=== PATIENT | female | born 1935 ===

== ENCOUNTER 2023-01-30 14:00 | Inpatient (IN) | payer OTHER ==
[2023-01-30 14:19] VITALS: BMI 28.3
[2023-01-30 15:26] LABS: BASO % 0.6 % (0-2.0); EOS % 4.4 % (0-4.5); HEMATOCRIT 22.7 % (32.4-45.2); HEMOGLOBIN 7.2 GM/dL (10.7-15.3); MCH 24.1 pg (25.7-33.7); MCHC 31.7 g/dl (32.0-36.0); MEAN CELL VOLUME 75.9 fl (80-96); MEAN PLT VOLUME 7.7 fl (7.5-11.1); MONO % 8.6 % (3.8-10.2); NEUT % 68.4 % (42.8-82.8); PLATELET COUNT 494 10^3/uL (134-434); RBC 2.99 M/mm3 (3.60-5.2); RDW 21.7 % (11.6-15.6); WHITE BLOOD COUNT 14.6 K/mm3 (4.0-10.0)
[2023-01-30 15:43] LABS: ANISOCYTOSIS 3+; MACROCYTOSIS 0
[2023-01-30 15:49] LABS: CALCIUM 8.6 mg/dL (8.5-10.1)
[2023-01-30 15:50] LABS: BLOOD UREA NITROGEN 26.7 mg/dL (7-18)
[2023-01-30 15:52] LABS: CREATININE 0.5 mg/dL (0.55-1.3)
[2023-01-30 15:54] LABS: BILIRUBIN,TOTAL 0.4 mg/dL (0.2-1); TOT PROT 6.9 g/dl (6.4-8.2)
[2023-01-30] MEDS ORDERED: PIPERACILLIN/TAZOB 4.5 GM 4.5 GM in DEXTROSE 5%-WATER 100 ML IVPB ONE (16:00)
[2023-01-30] MEDS ORDERED: VANCOMYCIN 1 GM in D5W (PRE-DOCKED) 1,000 MG/250 ML IVPB ONE (16:00)
[2023-01-30] MEDS ORDERED: VANCOMYCIN/WATER FOR INJ (PEG) 1,000 MG/200 ML BAG IVPB ONE (16:56)
[2023-01-30] MEDS ORDERED: PIPERACILLIN/TAZOB 3.375 GM 3.375 GM/50 ML BAG IVPB ONE (16:57)
[2023-01-30 17:13] LABS: URINE APPEARANCE CLEAR; URINE BILIRUBIN NEGATIVE (NEGATIVE); URINE COLOR YELLOW; URINE GLUCOSE (UA) NEGATIVE (NEGATIVE); URINE KETONE NEGATIVE (NEGATIVE); URINE LEUK ESTERASE NEGATIVE (NEGATIVE); URINE NITRITE NEGATIVE (NEGATIVE); URINE PROTEIN NEGATIVE (NEGATIVE); URINE UROBILINOGEN 0.2 mg/dL (0.2-1.0)
[2023-01-31 06:41] LABS: BASO % 0.7 % (0-2.0); EOS % 2.3 % (0-4.5); HEMATOCRIT 27.7 % (32.4-45.2); HEMOGLOBIN 9.2 GM/dL (10.7-15.3); MCHC 33.3 g/dl (32.0-36.0); MEAN CELL VOLUME 78.1 fl (80-96); MEAN PLT VOLUME 7.9 fl (7.5-11.1); MONO % 7.6 % (3.8-10.2); NEUT % 72.4 % (42.8-82.8); PLATELET COUNT 478 10^3/uL (134-434); RBC 3.54 M/mm3 (3.60-5.2); RDW 20.3 % (11.6-15.6); WHITE BLOOD COUNT 10.5 K/mm3 (4.0-10.0)
[2023-01-31 07:07] LABS: CALCIUM 8.6 mg/dL (8.5-10.1)
[2023-01-31 07:08] LABS: BLOOD UREA NITROGEN 17.7 mg/dL (7-18)
[2023-01-31 07:11] LABS: CREATININE 0.4 mg/dL (0.55-1.3)
[2023-01-31] MEDS ORDERED: INSULIN SLIDING SCALE (NOVOLOG) 1 VIAL SQ SCH (11:00)
[2023-01-31] MEDS: amLODIPine BESYLATE 2.5 MG TABLET (FP) GT SCH (11:36)
[2023-01-31] MEDS ORDERED: amLODIPine BESYLATE 2.5 MG TABLET (FP) ONE (11:42)
[2023-01-31] MEDS ORDERED: VANCOMYCIN/WATER FOR INJ (PEG) 1,000 MG/200 ML BAG IVPB ONE ×2 (12:46→13:35)
[2023-01-31] MEDS: PIPERACILLIN/TAZOB 3.375 GM 3.375 GM in DEXTROSE 5%-WATER - 50 ML IVPB SCH (13:35)
[2023-01-31] MEDS ORDERED: PIPERACILLIN/TAZOB 3.375 GM 3.375 GM/50 ML BAG IVPB ONE (13:36)
[2023-01-31] MEDS: INSULIN (LEVEMIR) 100 UNITS/ML UNITS SQ SCH (23:00)
[2023-02-01] MEDS ORDERED: PIPERACILLIN/TAZOB 3.375 GM 3.375 GM/50 ML BAG IVPB ONE ×2 (00:23→08:50)
[2023-02-01] MEDS: PIPERACILLIN/TAZOB 3.375 GM 3.375 GM in DEXTROSE 5%-WATER - 50 ML IVPB SCH ×4 (01:00→18:32)
[2023-02-01 06:53] LABS: BASO % 0.8 % (0-2.0); EOS % 2.1 % (0-4.5); HEMATOCRIT 25.9 % (32.4-45.2); HEMOGLOBIN 8.5 GM/dL (10.7-15.3); LYMPH % 14.7 % (8-40); MCH 25.5 pg (25.7-33.7); MCHC 32.7 g/dl (32.0-36.0); MONO % 9.8 % (3.8-10.2); NEUT % 72.6 % (42.8-82.8); PLATELET COUNT 476 10^3/uL (134-434); RBC 3.32 M/mm3 (3.60-5.2); RDW 20.5 % (11.6-15.6); WHITE BLOOD COUNT 12.8 K/mm3 (4.0-10.0)
[2023-02-01 07:19] LABS: BLOOD UREA NITROGEN 16.2 mg/dL (7-18); CALCIUM 8.6 mg/dL (8.5-10.1)
[2023-02-01 07:22] LABS: CREATININE 0.5 mg/dL (0.55-1.3)
[2023-02-01 07:23] LABS: PHOSPHOROUS 3.8 mg/dL (2.5-4.9)
[2023-02-01] MEDS ORDERED: amLODIPine BESYLATE 2.5 MG TABLET (FP) ONE (08:50)
[2023-02-01] MEDS: amLODIPine BESYLATE 2.5 MG TABLET (FP) GT SCH (09:00)
[2023-02-01] MEDS: PANTOPRAZOLE SODIUM 40 MG VIAL IVPUSH SCH (11:51)
[2023-02-01] MEDS ORDERED: PANTOPRAZOLE SODIUM 40 MG VIAL ONE (11:52)
[2023-02-01] MEDS: INSULIN (LEVEMIR) 100 UNITS/ML UNITS SQ SCH (22:02)
[2023-02-02] MEDS: PIPERACILLIN/TAZOB 3.375 GM 3.375 GM in DEXTROSE 5%-WATER - 50 ML IVPB SCH ×3 (02:30→18:06)
[2023-02-02 09:13] LABS: BASO % 0.4 % (0-2.0); HEMATOCRIT 24.1 % (32.4-45.2); LYMPH % 15.7 % (8-40); MCH 25.3 pg (25.7-33.7); MCHC 33.1 g/dl (32.0-36.0); MEAN CELL VOLUME 76.4 fl (80-96); MEAN PLT VOLUME 7.4 fl (7.5-11.1); MONO % 8.9 % (3.8-10.2); PLATELET COUNT 406 10^3/uL (134-434); RBC 3.16 M/mm3 (3.60-5.2); RDW 20.4 % (11.6-15.6); WHITE BLOOD COUNT 11.3 K/mm3 (4.0-10.0)
[2023-02-02 09:37] LABS: BLOOD UREA NITROGEN 13.8 mg/dL (7-18)
[2023-02-02 09:40] LABS: CREATININE 0.4 mg/dL (0.55-1.3); PHOSPHOROUS 4.1 mg/dL (2.5-4.9)
[2023-02-02] MEDS: INSULIN SLIDING SCALE (NOVOLOG) 1 VIAL SQ SCH ×2 (10:29→15:17)
[2023-02-02] MEDS: PANTOPRAZOLE SODIUM 40 MG VIAL IVPUSH SCH (11:18)
[2023-02-02] MEDS: LOSARTAN POTASSIUM 50 MG TABLET PO SCH (11:18)
[2023-02-02] MEDS: amLODIPine BESYLATE 2.5 MG TABLET (FP) GT SCH (11:18)
[2023-02-02] MEDS: INSULIN (LEVEMIR) 100 UNITS/ML UNITS SQ SCH (21:51)
[2023-02-03] MEDS: PIPERACILLIN/TAZOB 3.375 GM 3.375 GM in DEXTROSE 5%-WATER - 50 ML IVPB SCH ×3 (01:21→17:00)
[2023-02-03] MEDS: PANTOPRAZOLE SODIUM 40 MG VIAL IVPUSH SCH (10:01)
[2023-02-03] MEDS: amLODIPine BESYLATE 2.5 MG TABLET (FP) GT SCH (10:01)
[2023-02-03] MEDS: LOSARTAN POTASSIUM 50 MG TABLET PO SCH (10:01)
[2023-02-03] MEDS: MULTIVIT-MINERALS ORAL LIQUID PO SCH (10:06)
[2023-02-03 16:02] LABS: BASO % 0.4 % (0-2.0); EOS % 5.5 % (0-4.5); HEMATOCRIT 23.5 % (32.4-45.2); HEMOGLOBIN 7.9 GM/dL (10.7-15.3); LYMPH % 14.6 % (8-40); MCH 25.9 pg (25.7-33.7); MCHC 33.8 g/dl (32.0-36.0); MEAN CELL VOLUME 76.6 fl (80-96); MEAN PLT VOLUME 7.6 fl (7.5-11.1); MONO % 9.5 % (3.8-10.2); PLATELET COUNT 420 10^3/uL (134-434); RBC 3.06 M/mm3 (3.60-5.2); RDW 20.4 % (11.6-15.6); WHITE BLOOD COUNT 10.1 K/mm3 (4.0-10.0)
[2023-02-03 16:26] LABS: CALCIUM 8.1 mg/dL (8.5-10.1)
[2023-02-03 16:27] LABS: BLOOD UREA NITROGEN 15.1 mg/dL (7-18)
[2023-02-03 16:30] LABS: CREATININE 0.4 mg/dL (0.55-1.3)
[2023-02-03] MEDS: HEPARIN NA (PORCINE) 5,000 UNITS/ML 1ML VIAL SQ SCH (21:15)
[2023-02-03] MEDS: ATORVASTATIN CA 10 MG TABLET (FP) GT SCH (21:15)
[2023-02-03] MEDS: INSULIN (LEVEMIR) 100 UNITS/ML UNITS SQ SCH (21:15)
[2023-02-03] MEDS: levETIRAcetam 500 MG/5 ML ORAL SOLUTION (UNIT-DOSE CUPS) GT SCH (21:15)
[2023-02-04] MEDS: PIPERACILLIN/TAZOB 3.375 GM 3.375 GM in DEXTROSE 5%-WATER - 50 ML IVPB SCH ×3 (01:40→17:13)
[2023-02-04 08:57] LABS: BASO % 0.5 % (0-2.0); EOS % 4.2 % (0-4.5); HEMATOCRIT 24.2 % (32.4-45.2); HEMOGLOBIN 8.1 GM/dL (10.7-15.3); LYMPH % 13.3 % (8-40); MCH 25.8 pg (25.7-33.7); MCHC 33.6 g/dl (32.0-36.0); MEAN CELL VOLUME 76.6 fl (80-96); MEAN PLT VOLUME 7.5 fl (7.5-11.1); MONO % 8.2 % (3.8-10.2); NEUT % 73.8 % (42.8-82.8); PLATELET COUNT 407 10^3/uL (134-434); RBC 3.16 M/mm3 (3.60-5.2); WHITE BLOOD COUNT 10.1 K/mm3 (4.0-10.0)
[2023-02-04 09:26] LABS: BLOOD UREA NITROGEN 16.2 mg/dL (7-18)
[2023-02-04 09:29] LABS: CREATININE 0.4 mg/dL (0.55-1.3)
[2023-02-04] MEDS ORDERED: PATIENT'S OWN MEDICATION (NON-FORMULARY) (Multivitamin [Multiple Vitamins] 1 EACH Tablet) GT SCH (10:00)
[2023-02-04] MEDS ORDERED: PATIENT'S OWN MEDICATION (NON-FORMULARY) (Lansoprazole [Prevacid] 30 MG Capsule.Dr) GT SCH (10:00)
[2023-02-04] MEDS: POLYETHYLENE GLYCOL (HEALTHYLAX) 3350 17 GM PACKET GT SCH (10:43)
[2023-02-04] MEDS: HEPARIN NA (PORCINE) 5,000 UNITS/ML 1ML VIAL SQ SCH ×2 (10:43→21:05)
[2023-02-04] MEDS: levETIRAcetam 500 MG/5 ML ORAL SOLUTION (UNIT-DOSE CUPS) GT SCH ×2 (10:43→21:05)
[2023-02-04] MEDS: PANTOPRAZOLE SODIUM 40 MG VIAL IVPUSH SCH (10:43)
[2023-02-04] MEDS: amLODIPine BESYLATE 2.5 MG TABLET (FP) GT SCH (10:47)
[2023-02-04] MEDS: LOSARTAN POTASSIUM 50 MG TABLET PO SCH (10:47)
[2023-02-04] MEDS: ASPIRIN 81 MG CHEWABLE TABLETS GT SCH (10:47)
[2023-02-04] MEDS: ZINC SULFATE 220 MG CAPSULE (FP) GT SCH (10:47)
[2023-02-04] MEDS: FUROSEMIDE 40 MG/5 ML UNIT-DOSE CUP GT SCH (10:48)
[2023-02-04] MEDS: MULTIVIT-MINERALS ORAL LIQUID PO SCH (10:48)
[2023-02-04] MEDS: ATORVASTATIN CA 10 MG TABLET (FP) GT SCH (21:05)
[2023-02-04] MEDS: INSULIN (LEVEMIR) 100 UNITS/ML UNITS SQ SCH (21:08)
[2023-02-05] MEDS: PIPERACILLIN/TAZOB 3.375 GM 3.375 GM in DEXTROSE 5%-WATER - 50 ML IVPB SCH ×2 (01:14→09:34)
[2023-02-05] MEDS: HEPARIN NA (PORCINE) 5,000 UNITS/ML 1ML VIAL SQ SCH ×2 (09:33→22:27)
[2023-02-05] MEDS: PANTOPRAZOLE SODIUM 40 MG VIAL IVPUSH SCH (09:33)
[2023-02-05] MEDS: ASPIRIN 81 MG CHEWABLE TABLETS GT SCH (09:34)
[2023-02-05] MEDS: POLYETHYLENE GLYCOL (HEALTHYLAX) 3350 17 GM PACKET GT SCH (09:34)
[2023-02-05] MEDS: amLODIPine BESYLATE 2.5 MG TABLET (FP) GT SCH (09:34)
[2023-02-05] MEDS: ZINC SULFATE 220 MG CAPSULE (FP) GT SCH (09:34)
[2023-02-05] MEDS: LOSARTAN POTASSIUM 50 MG TABLET PO SCH (09:34)
[2023-02-05] MEDS: levETIRAcetam 500 MG/5 ML ORAL SOLUTION (UNIT-DOSE CUPS) GT SCH ×2 (09:34→22:28)
[2023-02-05] MEDS: MULTIVIT-MINERALS ORAL LIQUID PO SCH (09:35)
[2023-02-05] MEDS: FUROSEMIDE 40 MG/5 ML UNIT-DOSE CUP GT SCH (09:36)
[2023-02-05 10:42] LABS: BASO % 0.6 % (0-2.0); EOS % 4.7 % (0-4.5); HEMATOCRIT 24.6 % (32.4-45.2); HEMOGLOBIN 8.1 GM/dL (10.7-15.3); LYMPH % 20.2 % (8-40); MCH 25.2 pg (25.7-33.7); MCHC 32.8 g/dl (32.0-36.0); MEAN PLT VOLUME 7.5 fl (7.5-11.1); NEUT % 66.5 % (42.8-82.8); PLATELET COUNT 420 10^3/uL (134-434); RDW 20.3 % (11.6-15.6); WHITE BLOOD COUNT 11.2 K/mm3 (4.0-10.0)
[2023-02-05 11:08] LABS: CALCIUM 8.4 mg/dL (8.5-10.1)
[2023-02-05 11:09] LABS: ALBUMIN 1.8 g/dl (3.4-5.0)
[2023-02-05 11:12] LABS: CREATININE 0.5 mg/dL (0.55-1.3)
[2023-02-05 11:14] LABS: BILIRUBIN,TOTAL 0.4 mg/dL (0.2-1); TOT PROT 6.5 g/dl (6.4-8.2)
[2023-02-05] MEDS: AMOX TR/POTASSIUM CLAVULANATE 600 MG/5 ML PO SCH (18:13)
[2023-02-05] MEDS: ATORVASTATIN CA 10 MG TABLET (FP) GT SCH (22:27)
[2023-02-05] MEDS: INSULIN (LEVEMIR) 100 UNITS/ML UNITS SQ SCH (22:28)
[2023-02-06] MEDS: AMOX TR/POTASSIUM CLAVULANATE 600 MG/5 ML PO SCH ×2 (08:17→16:44)
[2023-02-06] MEDS: COLLAGENASE CLOSTRIDIUM HIST. 30 GRAMS TUBE TP SCH (11:50)
[2023-02-06] MEDS: FUROSEMIDE 40 MG/5 ML UNIT-DOSE CUP GT SCH (11:58)
[2023-02-06] MEDS: POLYETHYLENE GLYCOL (HEALTHYLAX) 3350 17 GM PACKET GT SCH ×2 (11:59→12:25)
[2023-02-06] MEDS: levETIRAcetam 500 MG/5 ML ORAL SOLUTION (UNIT-DOSE CUPS) GT SCH ×2 (12:00→22:41)
[2023-02-06] MEDS: LOSARTAN POTASSIUM 50 MG TABLET PO SCH (12:00)
[2023-02-06] MEDS: ZINC SULFATE 220 MG CAPSULE (FP) GT SCH (12:00)
[2023-02-06] MEDS: HEPARIN NA (PORCINE) 5,000 UNITS/ML 1ML VIAL SQ SCH ×2 (12:00→22:41)
[2023-02-06] MEDS: PANTOPRAZOLE SODIUM 40 MG VIAL IVPUSH SCH (12:00)
[2023-02-06] MEDS: ASPIRIN 81 MG CHEWABLE TABLETS GT SCH (12:01)
[2023-02-06] MEDS: MULTIVIT-MINERALS ORAL LIQUID PO SCH (12:02)
[2023-02-06] MEDS: amLODIPine BESYLATE 2.5 MG TABLET (FP) GT SCH (12:03)
[2023-02-06] MEDS: AMINO ACIDS/PROTEIN HYDROLYS 30 ML LIQUID.PKT PO SCH (16:44)
[2023-02-06 17:01] LABS: ALBUMIN 1.8 g/dl (3.4-5.0)
[2023-02-06 17:04] LABS: BILIRUBIN,DIRECT 0.2 mg/dL (0.0-0.2)
[2023-02-06 17:06] LABS: BILIRUBIN,TOTAL 0.4 mg/dL (0.2-1); TOT PROT 6.4 g/dl (6.4-8.2)
[2023-02-06] MEDS ORDERED: REMDESIVIR 200 MG in SODIUM CHLORIDE 250 ML IVPB ONE (20:37)
[2023-02-06] MEDS: INSULIN (LEVEMIR) 100 UNITS/ML UNITS SQ SCH (22:41)
[2023-02-06] MEDS: ATORVASTATIN CA 10 MG TABLET (FP) GT SCH (22:41)
[2023-02-07] MEDS ORDERED: ACETAMINOPHEN 1000 MG/100 ML BAG IVPB ONE (05:50)
[2023-02-07 09:44] LABS: BASO % 0.5 % (0-2.0); EOS % 0.3 % (0-4.5); HEMATOCRIT 23.6 % (32.4-45.2); HEMOGLOBIN 7.7 GM/dL (10.7-15.3); LYMPH % 7.3 % (8-40); MCH 24.8 pg (25.7-33.7); MCHC 32.6 g/dl (32.0-36.0); MEAN CELL VOLUME 76.2 fl (80-96); MEAN PLT VOLUME 8.1 fl (7.5-11.1); MONO % 6.4 % (3.8-10.2); NEUT % 85.5 % (42.8-82.8); PLATELET COUNT 393 10^3/uL (134-434); RDW 19.7 % (11.6-15.6); WHITE BLOOD COUNT 16.9 K/mm3 (4.0-10.0)
[2023-02-07] MEDS: ASPIRIN 81 MG CHEWABLE TABLETS GT SCH (09:48)
[2023-02-07] MEDS: ZINC SULFATE 220 MG CAPSULE (FP) GT SCH (09:48)
[2023-02-07] MEDS: amLODIPine BESYLATE 2.5 MG TABLET (FP) GT SCH (09:48)
[2023-02-07] MEDS: LOSARTAN POTASSIUM 50 MG TABLET PO SCH (09:48)
[2023-02-07] MEDS: levETIRAcetam 500 MG/5 ML ORAL SOLUTION (UNIT-DOSE CUPS) GT SCH ×2 (09:48→22:24)
[2023-02-07] MEDS: AMINO ACIDS/PROTEIN HYDROLYS 30 ML LIQUID.PKT PO SCH ×3 (09:49→17:12)
[2023-02-07] MEDS: AMOX TR/POTASSIUM CLAVULANATE 600 MG/5 ML PO SCH ×2 (09:49→17:12)
[2023-02-07] MEDS: HEPARIN NA (PORCINE) 5,000 UNITS/ML 1ML VIAL SQ SCH ×2 (09:50→22:24)
[2023-02-07] MEDS: PANTOPRAZOLE SODIUM 40 MG VIAL IVPUSH SCH (09:51)
[2023-02-07] MEDS: MULTIVIT-MINERALS ORAL LIQUID PO SCH (09:53)
[2023-02-07] MEDS: FUROSEMIDE 40 MG/5 ML UNIT-DOSE CUP GT SCH (09:53)
[2023-02-07 10:09] LABS: CALCIUM 8.1 mg/dL (8.5-10.1)
[2023-02-07 10:10] LABS: ALBUMIN 1.8 g/dl (3.4-5.0); BLOOD UREA NITROGEN 20.2 mg/dL (7-18)
[2023-02-07 10:13] LABS: CREATININE 0.5 mg/dL (0.55-1.3)
[2023-02-07 10:14] LABS: BILIRUBIN,TOTAL 0.3 mg/dL (0.2-1); TOT PROT 6.1 g/dl (6.4-8.2)
[2023-02-07] MEDS: POLYETHYLENE GLYCOL (HEALTHYLAX) 3350 17 GM PACKET GT SCH (12:08)
[2023-02-07] MEDS: COLLAGENASE CLOSTRIDIUM HIST. 30 GRAMS TUBE TP SCH (14:00)
[2023-02-07] MEDS: ATORVASTATIN CA 10 MG TABLET (FP) GT SCH (22:24)
[2023-02-07] MEDS: REMDESIVIR 100 MG in SODIUM CHLORIDE 250 ML IVPB SCH (22:24)
[2023-02-07] MEDS: INSULIN (LEVEMIR) 100 UNITS/ML UNITS SQ SCH (22:25)
[2023-02-08] MEDS: AMOX TR/POTASSIUM CLAVULANATE 600 MG/5 ML PO SCH ×2 (09:00→18:55)
[2023-02-08 09:11] LABS: BASO % 0.5 % (0-2.0); EOS % 1.4 % (0-4.5); HEMATOCRIT 24.4 % (32.4-45.2); HEMOGLOBIN 8.3 GM/dL (10.7-15.3); LYMPH % 11.2 % (8-40); MCH 25.8 pg (25.7-33.7); MEAN PLT VOLUME 8.6 fl (7.5-11.1); MONO % 7.8 % (3.8-10.2); NEUT % 79.1 % (42.8-82.8); PLATELET COUNT 432 10^3/uL (134-434); RBC 3.22 M/mm3 (3.60-5.2); RDW 19.4 % (11.6-15.6); WHITE BLOOD COUNT 13.5 K/mm3 (4.0-10.0)
[2023-02-08] MEDS: AMINO ACIDS/PROTEIN HYDROLYS 30 ML LIQUID.PKT PO SCH ×3 (09:30→18:56)
[2023-02-08 09:41] LABS: BLOOD UREA NITROGEN 25.6 mg/dL (7-18); CALCIUM 8.6 mg/dL (8.5-10.1)
[2023-02-08 09:43] LABS: CREATININE 0.5 mg/dL (0.55-1.3)
[2023-02-08] MEDS: HEPARIN NA (PORCINE) 5,000 UNITS/ML 1ML VIAL SQ SCH ×2 (10:38→21:12)
[2023-02-08] MEDS: levETIRAcetam 500 MG/5 ML ORAL SOLUTION (UNIT-DOSE CUPS) GT SCH ×2 (10:39→21:13)
[2023-02-08] MEDS: amLODIPine BESYLATE 2.5 MG TABLET (FP) GT SCH (10:39)
[2023-02-08] MEDS: ASPIRIN 81 MG CHEWABLE TABLETS GT SCH (10:39)
[2023-02-08] MEDS: PANTOPRAZOLE SODIUM 40 MG VIAL IVPUSH SCH (10:39)
[2023-02-08] MEDS: ZINC SULFATE 220 MG CAPSULE (FP) GT SCH (10:39)
[2023-02-08] MEDS: LOSARTAN POTASSIUM 50 MG TABLET PO SCH (10:39)
[2023-02-08] MEDS: FUROSEMIDE 40 MG/5 ML UNIT-DOSE CUP GT SCH (10:39)
[2023-02-08] MEDS: MULTIVIT-MINERALS ORAL LIQUID PO SCH (10:40)
[2023-02-08] MEDS: POLYETHYLENE GLYCOL (HEALTHYLAX) 3350 17 GM PACKET GT SCH (10:55)
[2023-02-08] MEDS: SILVER SULFADIAZINE 1% TOP CREAM 400 GM JAR TP SCH (13:00)
[2023-02-08] MEDS: COLLAGENASE CLOSTRIDIUM HIST. 30 GRAMS TUBE TP SCH (13:00)
[2023-02-08] MEDS: NYSTATIN 100000 UNIT/GM TOPICAL OINTMENT 15 GM TUBE TP SCH ×2 (13:00→23:48)
[2023-02-08] MEDS: REMDESIVIR 100 MG in SODIUM CHLORIDE 250 ML IVPB SCH (21:12)
[2023-02-08] MEDS: ATORVASTATIN CA 10 MG TABLET (FP) GT SCH (21:13)
[2023-02-08] MEDS: INSULIN (LEVEMIR) 100 UNITS/ML UNITS SQ SCH (23:35)
[2023-02-09 07:25] VITALS: PULSE 82; TEMP 98.1
[2023-02-09 09:03] VITALS: RESP 17
[2023-02-09 09:27] VITALS: BP 168/54
[2023-02-09] MEDS: PANTOPRAZOLE SODIUM 40 MG VIAL IVPUSH SCH (09:39)
[2023-02-09] MEDS: POLYETHYLENE GLYCOL (HEALTHYLAX) 3350 17 GM PACKET GT SCH (09:39)
[2023-02-09] MEDS: FUROSEMIDE 40 MG/5 ML UNIT-DOSE CUP GT SCH (09:39)
[2023-02-09] MEDS: LOSARTAN POTASSIUM 50 MG TABLET PO SCH (09:41)
[2023-02-09] MEDS: MULTIVIT-MINERALS ORAL LIQUID PO SCH (09:41)
[2023-02-09] MEDS: AMINO ACIDS/PROTEIN HYDROLYS 30 ML LIQUID.PKT PO SCH (09:41)
[2023-02-09] MEDS: AMOX TR/POTASSIUM CLAVULANATE 600 MG/5 ML PO SCH (09:41)
[2023-02-09] MEDS: ZINC SULFATE 220 MG CAPSULE (FP) GT SCH (09:41)
[2023-02-09] MEDS: ASPIRIN 81 MG CHEWABLE TABLETS GT SCH (09:41)
[2023-02-09] MEDS: amLODIPine BESYLATE 2.5 MG TABLET (FP) GT SCH (09:42)
[2023-02-09] MEDS: levETIRAcetam 500 MG/5 ML ORAL SOLUTION (UNIT-DOSE CUPS) GT SCH (09:42)
[2023-02-09] MEDS: HEPARIN NA (PORCINE) 5,000 UNITS/ML 1ML VIAL SQ SCH (09:42)
[2023-02-09] MEDS: NYSTATIN 100000 UNIT/GM TOPICAL OINTMENT 15 GM TUBE TP SCH (09:44)
[2023-02-09] MEDS: COLLAGENASE CLOSTRIDIUM HIST. 30 GRAMS TUBE TP SCH (09:44)
[2023-02-09 10:22] LABS: BASO % 0.4 % (0-2.0); EOS % 2.1 % (0-4.5); HEMATOCRIT 23.9 % (32.4-45.2); MCH 25.4 pg (25.7-33.7); MCHC 33.5 g/dl (32.0-36.0); MEAN CELL VOLUME 75.7 fl (80-96); MEAN PLT VOLUME 8.1 fl (7.5-11.1); MONO % 11.2 % (3.8-10.2); NEUT % 71.3 % (42.8-82.8); PLATELET COUNT 404 10^3/uL (134-434); RBC 3.15 M/mm3 (3.60-5.2); RDW 19.4 % (11.6-15.6); WHITE BLOOD COUNT 12.7 K/mm3 (4.0-10.0)
[2023-02-09] MEDS: SILVER SULFADIAZINE 1% TOP CREAM 400 GM JAR TP SCH (12:16)
== END 2023-02-09 12:22 | DRG 811 ==
LOC: JER 14:00 → JERBED 17:34 → J5S 02-01 15:29 → OBSVTOIN 02-04 10:15
PROVIDERS: ADMIT Internal Medicine; ATTEND Nurse Practitioner Acute Care
PROC: 5A1955Z Respiratory Ventilation, Greater than 96 Consecutive Hours (ICD-10-PCS; principal; 2023-02-04)
PROC: XW033E5 Introduction of Remdesivir Anti-infective into Peripheral Vein, Percutaneous Approach, New Technology Group 5 (ICD-10-PCS; 2023-02-06)
DX: D64.9 Anemia, unspecified (principal); J18.9 Pneumonia, unspecified organism; L89.154 Pressure ulcer of sacral region, stage 4; U07.1 COVID-19; I69.354 Hemiplegia and hemiparesis following cerebral infarction affecting left non-dominant side; Z99.11 Dependence on respirator [ventilator] status; J96.12 Chronic respiratory failure with hypercapnia; J96.11 Chronic respiratory failure with hypoxia; G93.1 Anoxic brain damage, not elsewhere classified; N39.0 Urinary tract infection, site not specified; E78.5 Hyperlipidemia, unspecified; E11.9 Type 2 diabetes mellitus without complications; G40.909 Epilepsy, unspecified, not intractable, without status epilepticus; I10 Essential (primary) hypertension; M48.02 Spinal stenosis, cervical region; R13.10 Dysphagia, unspecified; Z93.1 Gastrostomy status; Z93.0 Tracheostomy status; L89.622 Pressure ulcer of left heel, stage 2; L89.612 Pressure ulcer of right heel, stage 2; L89.150 Pressure ulcer of sacral region, unstageable; D72.829 Elevated white blood cell count, unspecified; M79.89 Other specified soft tissue disorders; R74.01 Elevation of levels of liver transaminase levels; L89.620 Pressure ulcer of left heel, unstageable; L89.610 Pressure ulcer of right heel, unstageable
CPT/HCPCS: 0241U-QW; 36415; 36430; 71045-TC-FY; 73630-TC-RT-FY; 76705-TC; 80048; 80053; 80076; 81003; 82272; 82607; 82728; 82746; 82962; 83540; 83550; 83735; 84100; 85025; 86140; 86850; 86900; 86901; 86922; 87040; 87070; 87081; 87086; 87186; 87205; 93005; 93010; 93971; 94002; 99285-25; C9399; C9803-CS; G0378; J1644; P9058; U0003; U0005